=== PATIENT | male | born 1980 | race Caucasian/White ===

== ENCOUNTER 2017-08-25 18:14 | Outpatient (CLI) | payer MEDICAID | END 2017-08-25 18:15 | disposition critical access hospital (66) | LOC: EMS 18:14 | PROVIDERS: ATTEND Surgery | DX: M25.562 Pain in left knee (principal); S09.90XA Unspecified injury of head, initial encounter; S29.9XXA Unspecified injury of thorax, initial encounter; Y08.89XA Assault by other specified means, initial encounter | CPT/HCPCS: A0425; A0429; A0999 ==

== ENCOUNTER 2017-08-25 18:35 | Emergency (ER) | payer MEDICAID ==
[2017-08-25] MEDS ORDERED: TETANUS/DIPHTHERIA/PERTUSSIS 0.5 ML SYRINGE IM ONE (18:42)
[2017-08-25] MEDS ORDERED: AMOXICILLIN 250 MG CAPSULE PO STA (18:42)
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
[2017-08-25 18:58] VITALS: BP 100/66
--- NOTE | 2017-08-25 19:32 | XRAY Report ---
Procedure Date: 08/25/2017 Accession Number: [id number] / [id number] Procedure: XR - Forearm LT CPT Code: FULL RESULT: EXAM: LEFT FOREARM RADIOGRAPHY EXAM DATE: 08/25/2017 07:15 PM. CLINICAL HISTORY: Arm pain COMPARISON: None. TECHNIQUE: 2 views. FINDINGS: Bones: No fracture or focal bony lesion. Joints: No evidence of dislocation. Soft Tissues: No unexpected soft tissue findings. IMPRESSION: No evidence of fracture or dislocation. [facility]
--- NOTE | 2017-08-25 19:46 | XRAY Report ---
Procedure Date: 08/25/2017 Accession Number: [id number] / [id number] Procedure: XR - Knee 4 View LT CPT Code: FULL RESULT: EXAM: LEFT KNEE RADIOGRAPHY EXAM DATE: 08/25/2017 07:15 PM. CLINICAL HISTORY: Knee pain COMPARISON: None. TECHNIQUE: 4 views. FINDINGS: Bones: No fracture or focal bony lesion. Joints: No evidence of dislocation. Soft Tissues: No unexpected soft tissue findings. IMPRESSION: No evidence of fracture or dislocation. [facility]
--- NOTE | 2017-08-25 19:48 | XRAY Report ---
Procedure Date: 08/25/2017 Accession Number: [id number] / [id number] Procedure: XR - Ribs w/PA Chest LT CPT Code: FULL RESULT: EXAM: LEFT RIB RADIOGRAPHY EXAM DATE: 08/25/2017 07:15 PM. CLINICAL HISTORY: Chest wall inj. COMPARISON: None. TECHNIQUE: 1 view of the chest and 2 views of the ribs. FINDINGS: Bones: Normal. No fracture or bone lesion. Lungs: No focal opacities. No pneumothorax. No pleural effusions. Mediastinum: Heart and mediastinal contours are unremarkable. Other: None. IMPRESSION: Negative chest and rib radiography. [facility]
== END 2017-08-25 19:28 | disposition home or self-care (01) ==
LOC: EDUNIT# → ED 18:35
DX: S40.022A Contusion of left upper arm, initial encounter (principal); S80.02XA Contusion of left knee, initial encounter; S20.212A Contusion of left front wall of thorax, initial encounter; M25.462 Effusion, left knee; S00.212A Abrasion of left eyelid and periocular area, initial encounter; Y04.2XXA Assault by strike against or bumped into by another person, initial encounter; K08.89 Other specified disorders of teeth and supporting structures
CPT/HCPCS: 71101; 73090; 73564; 90471; 90715; 99283; A9270

== ENCOUNTER 2019-07-25 08:00 | Outpatient (CLI) | payer MEDICAID, OTHER ==
[2019-07-25 14:29] LABS: ALBUMIN 4.2 g/dL (3.2-5.5); ALBUMIN/GLOBULIN RATIO 1.6 (1.0-2.2); BILIRUBIN,TOTAL 0.5 mg/dL (0.2-1.0); CALCIUM 9.4 mg/dL (8.5-10.3); CREATININE 0.9 mg/dL (0.6-1.2); TOTAL PROTEIN 6.8 g/dL (6.7-8.2)
== END 2019-07-25 23:59 | disposition home or self-care (01) ==
LOC: LAB.R 08:00
PROVIDERS: ATTEND Registered Nurse
DX: E23.2 Diabetes insipidus (principal)
CPT/HCPCS: 36415; 80053

== ENCOUNTER 2019-07-26 10:05 | Outpatient (CLI) | payer MEDICAID, OTHER ==
[2019-07-26 10:56] LABS: HB2 TOTAL 14.6 g/dL; HEMOGLOBIN A1C 0.6 g/dL; HEMOGLOBIN A1C % 5.9 % (4.6-6.2)
== END 2019-07-26 23:59 | disposition home or self-care (01) ==
LOC: LAB.R 10:05
PROVIDERS: ATTEND Registered Nurse
DX: Z13.1 Encounter for screening for diabetes mellitus (principal)
CPT/HCPCS: 36415; 83036

== ENCOUNTER 2019-09-24 14:51 | Outpatient (CLI) | payer OTHER ==
[2019-09-24 16:33] LABS: CALCIUM 8.6 mg/dL (8.5-10.3); CREATININE 0.8 mg/dL (0.6-1.2)
== END 2019-09-24 23:59 | disposition home or self-care (01) ==
LOC: LAB.R 14:51
PROVIDERS: ATTEND Registered Nurse
DX: E87.8 Other disorders of electrolyte and fluid balance, not elsewhere classified (principal)
CPT/HCPCS: 80048